=== PATIENT | female | born 2000 | race Caucasian/White ===

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

== ENCOUNTER 2020-07-25 21:47 | Emergency (ER) | payer OTHER ==
[~2020-07-25] VITALS: Ht 167.6 cm; Wt 47.6 kg
[2020-07-25 21:57] VITALS: Ht 167.6 cm; Wt 47.6 kg
[2020-07-25 22:42] VITALS: BP 100/45
== END 2020-07-25 22:44 | disposition home or self-care (01) ==
LOC: ED 21:47
DX: T23.101A Burn of first degree of right hand, unspecified site, initial encounter (principal); X08.8XXA Exposure to other specified smoke, fire and flames, initial encounter; Y93.89 Activity, other specified; Y92.89 Other specified places as the place of occurrence of the external cause